=== PATIENT | male | born 1990 | race Caucasian/White ===

== ENCOUNTER 2021-03-13 14:22 | Emergency (ER) | payer SELFPAY ==
[2021-03-13 15:30] VITALS: BP 140/81
--- NOTE | 2021-03-13 16:02 | Emergency Department Report ---
Chief Complaint: Urogenital-Male Stated Complaint: BUMPS ON PENIS Time Seen by Provider: 03/13/21 15:56 - HPI History of Present Illness: Patient is a 30-year-old male presents emergency room complaints of bumps present to the penile shaft that began yesterday. He states that the bumps appeared to have a clear fluid present. Patient states that a week ago he was sexually active but reports he used a condom. He states that the person also performed oral sex. He denies any penile swelling, pain or swelling the testicles, dysuria, penile discharge, fever, dysuria, urinary symptoms, urinary retention. Patient denies any past medical history. No allergies to m edications. Vitals are stable On exam: Non toxic appearing, no acute distress atraumatic, normocephalic normal appearance of the eyes,EOMI, no periorbital edema or ecchymosis moist mucus membranes No respiratory distress, no accessory muscle use A&O x4 exam chaperoned by MANNIE Vivar, there are a couple small vesicles present on the penile shaft, no erythema, no increased warmth, no penile edema, no scrotal edema, no testicular tenderness, normal testicular lie, normal cremasteric reflex Patient presents for bumps present to the penis that began yesterday He did have recent sexual contact On exam he does have a few small vesicles Symptoms could be related to genital herpes Patient will be given outpatient referral for health department and clinic in order to receive a full STD panel and treatment as appropriate Advised no sexual contact and to have partner tested and treated as well Discussed strict return precautions Given the appropriate resources Medical screen examination performed and there is no threat to life or limb at this time - Exam Vital Signs: Vital Signs 03/13/21 15:29 Temperature 99.8 F H Pulse Rate 68 Respiratory 17 Rate Blood Pressure 140/81 O2 Sat by Pulse 97 Oximetry MSE screening note: Focused history and physical exam performed. Due to findings the following was ordered: ED Disposition for MSE Clinical Impression: Penile lesion Disposition: 01 HOME / SELF CARE / HOMELESS Is pt being admited?: No Does the pt Need Aspirin: No Condition: Stable Instructions: Safe Sex Additional Instructions: follow up with health department or clinic for full std panel. have any partner tested and treated as well. avoid sexual intercourse. return to the emergency ro om for any new or worsening symptoms. walk in clinic: [facility], [place] Address: [address] [place] [id number] Referrals: [facility] Depart [Outside] - 2-3 Days Time of Disposition: 16:00 Print Language: SOUTH AFR[place]
== END 2021-03-13 16:05 | disposition home or self-care (01) ==
LOC: ED 14:22
DX: N48.9 Disorder of penis, unspecified (principal)
CPT/HCPCS: 99281